=== PATIENT | male | born 1945 | race Hispanic/Latino ===

== ENCOUNTER 2018-07-07 08:24 | Day surgery (SDC) | payer MEDICARE, MEDICAID ==
[2018-06-30 09:35] VITALS: BMI 24.3
[2018-07-07] MEDS ORDERED: Propofol 10 mg/ml Inj (20 ML) ONE (09:34)
[2018-07-07] MEDS ORDERED: ceFAZolin IV 1 gm in Dextrose 1 GM/50 ML BAG IVPB ONE (09:36)
[2018-07-07] MEDS ORDERED: Phenylephrine 10 mg/ml Inj ONE (09:53)
[2018-07-07] MEDS ORDERED: ePHEDrine 50 mg/ml Inj ONE (10:09)
[2018-07-07] MEDS ORDERED: Bupivacaine 0.25% 20 ML INJ IJ ONE (10:20)
[2018-07-07] MEDS ORDERED: Metoprolol 1 mg/ml Inj IVP ONE (11:29)
--- NOTE | 2018-07-07 11:36 | PCM.SURG1 ---
Surgeon's Initial Post Op Note - Surgeon's Notes Surgeon: Dr. Castillo [place] Pinner: Dr. Saini PGY-4 Type of Anesthesia: General LMA, Local Pre-Operative Diagnosis: Left recurrent inguinal hernia Operative Findings: Left recurrent inguinal hernia Post-Operative Diagnosis: Left recurrent inguinal hernia Operation Performed: Left inguinal hernia repair with mesh Specimen/Specimens Removed: none Estimated Blood Loss: EBL {In ML}: 10 Blood Products Given: N/A Drains Used: No Drains Post-Op Condition: Good Date of Surgery/Procedure: 07/07/18 Time of Surgery/Procedure: 11:35
[2018-07-07] MEDS: HYDROmorphone 0.5 mg/0.5 ml ISec IVP PRN ×4 (11:47→12:17)
[2018-07-07] MEDS ORDERED: Lactated Ringer's 500 ML IV ONE (12:50)
[2018-07-07 13:56] VITALS: RESP 16; TEMP 97.7; O2SAT 95
[2018-07-07 15:14] VITALS: BP 145/69; PULSE 70
--- NOTE | 2018-07-08 07:30 | OP ---
Copied To: Sincere Castillo Jr., MD Attending MD: Sincere Castillo Jr., MD PROCEDURE DATE: 07/07/2018 SURGEON: iSncere Castillo Jr., MD COUNTER HAND: Karley Saini DO ANESTHESIOLOGIST: Mr. Aleksandr Worrell INDICATIONS: The patient is an older middle-aged man with a history of heart bypass surgery and adult-onset diabetes who presents with increasingly symptomatic two-time recurring left inguinal hernia. OPERATIVE FINDINGS: The operation is more difficult than usual. There were two separate defects, one at the pubic tubercle and another at the internal ring. Both of these were direct type hernias and plugs were used, the Atrium plug. The rest of the intraoperative findings were unremarkable. Blood supply to the testicles preserved. DESCRIPTION OF PROCEDURE: The patient was given general anesthesia and intravenous antibiotics. Skin preparation was carried out. Placement of wide open incision was made, exposing the cord and its contents were dissected away. The external oblique was dissected away. After this had been done, we identified the two defects, one just at the pubic tubercle and the other at the internal ring. After these had been dissected free, we had placed plugs and sutured into the surrounding fascia and both these locations, we then placed the Atrium patch on top of this and sutured to the surrounding fascia. The external oblique was closed on top of this. . Blood loss for the procedure was 10 mL. There were no operative complications or problems. Marcaine was injected prior to closure. Sincere Castillo Jr., MD cc: Yadiel Torrez MD
== END 2018-07-07 14:10 | disposition home or self-care (01) ==
LOC: EDBD → C.SDS 08:24
PROVIDERS: ATTEND Surgery Vascular Surgery
DX: K40.91 Unilateral inguinal hernia, without obstruction or gangrene, recurrent (principal); E11.9 Type 2 diabetes mellitus without complications; Z79.84 Long term (current) use of oral hypoglycemic drugs
CPT/HCPCS: 49520; 82948; C1781; J0690; J1170; J1885; J2001; J2370; J2405; J2704; J3010; J7120